=== PATIENT | male | born 1960 | race Caucasian/White ===

== ENCOUNTER → 2019-01-30 | Outpatient (CLI) | payer OTHER ==
[~2019-01-30] MED LIST: COQ-10100 MG PO; COZAAR 25 MG TA25 M1 PO; COZAAR 50 MG TA50 M2 PO; KRILL OIL 1,001 EAC1 PO; NORCO 5-325 TA1 EACH PO; OMEPRAZOLE20 M2 PO; UNICOMPLEX M TA1 TA1 PO; VALIUM5 MG PO
== END ==
LOC: CAT 09:24
DX: Z13.6 Encounter for screening for cardiovascular disorders (principal); E78.00 Pure hypercholesterolemia, unspecified; I25.10 Atherosclerotic heart disease of native coronary artery without angina pectoris